=== PATIENT | male | born 1980 | race Caucasian/White ===

== ENCOUNTER 2024-12-21 11:48 | Emergency (ER) | payer MEDICAID, SELFPAY ==
--- NOTE | ~2024-12-21 | CT_ITS ---
CLINICAL HISTORY: rt lower quadarnt pain CT abdomen and pelvis with contrast Comparison: None available Findings: No consolidation at the lung bases. Unremarkable gallbladder and bladder. Hepatic steatosis. No hydronephrosis. Punctate right nephrolithiasis versus early excretion of contrast ( series 5, image 53 ). Subcentimeter low attenuating lesion in the right kidney which is too small to characterize. Cystic dilation of the seminal vesicles. The other solid organs are unremarkable. Small hiatal hernia. No bowel wall thickening or dilation. 1.8 cm increased attenuation material within the distal small bowel, likely ingested (series 5, image 26).A normal appendix is visualized measuring 7 mm, containing intraluminal air and without periappendiceal stranding. No aneurysm. Trace calcified atherosclerotic disease. No lymphadenopathy. No ascites. No acute osseous abnormality. Impression: No acute pathology. This document has been electronically signed by: Kathy Del Valle MD on 12/21/2024 18:00:29
[2024-12-21 11:57] VITALS: BP 142/95; PULSE 74; RESP 18; TEMP 36.5; O2SAT 98; BMI 34.3
--- NOTE | 2024-12-21 11:57 | ED_ITS ---
HPI - Abdominal Pain General Chief Complaint: Abdominal Pain Stated Complaint: abd pain Time Seen by Provider: 12/21/24 13:20 Related Data Allergies Allergy/AdvReac Type Severity Reaction Status Date / Time No Known Allergies Allergy Verified 12/21/24 12:00 [facility] Social History Social History Smoked in Last 30 Days: No Use of substances other than those prescribed or required for medical reasons: No Advance Directives: No Advance Directives Information Provided: Yes Physical Exam ED Vital Signs: Vital Signs - 24 hr 12/21/24 11:57 Temperature 97.7 F Pulse Rate 74 Respiratory Rate 18 Blood Pressure 142/95 H Pulse Oximetry 98 Oxygen Delivery Method Room Air BMI result Body Mass Index 34.3 Course Course Course Narrative: This is an RME performed by Reyna Juan CNP: Additional HPI, ROS, PE not included below will be deferred to primary provider. Patient is a 43 year male who presents emergency department for evaluation of abdominal pain onset 2 weeks ago initially in the right lower abdomen now diffusely throughout the lower abdomen. Today progressively worse and increased while walking. Denies nausea, vomiting, diarrhea, symptoms. Plan: serum labs, U/A Reevaluation(s) Reevaluation #1: see additional note dated 12/21/[address] Ontiveros Medical Decision Making Lab Data 12/21/24 12:29 12/21/24 12:29 Labs: Lab Results 12/21/24 12/21/24 Range/Units 12:29 13:47 WBC 5.1 (4.8-10.8) X10*3/uL RBC 4.69 (4.60-5.80) X10*6/uL Hgb 14.4 (14.0-18.0) g/dl Hct 40.8 L (42.0-52.0) % MCV 87.0 (80.0-98.0) fL MCH 30.7 (27.0-33.0) pg MCHC 35.3 (31.0-36.0) g/dl RDW 12.2 (11.0-16.0) % Plt Count 198 (160-400) X10*3/uL MPV 10.1 (9.4-12.4) fL Immature Gran % (Auto) 0.4 (0.0-0.4) % Neut % (Auto) 52.8 (45-73) % Lymph % (Auto) 37.0 (20-40) % [place] % (Auto) 7.6 (2-11) % Eos % (Auto) 1.8 (0-4) % Baso % (Auto) 0.4 (0-2) % Lymph # (Auto) 1.9 (1.2-4.9) X10*3/uL [place] # (Auto) 0.4 (0.1-1.2) X10*3/uL Eos # (Auto) 0.1 (0.0-0.4) X10*3/uL Baso # (Auto) 0.0 (0.0-0.2) X10*3/uL Abs Immat Gran (auto) 0.02 (0.00-0.03) X10*3/uL Absolute Neuts (auto) 2.7 (2.0-8.3) x10*3/uL Absolute Nucleated RBC 0.000 (0.0-0.012) X10*3/uL Nucleated RBC % (auto) 0.0 (0.0-0.2) /100WBC Sodium 142 (135-145) mmol/L Potassium 4.1 (3.3-5.1) mmol/L Chloride 108 (96-108) mmol/L Carbon Dioxide 27 (22-29) mmol/L Anion Gap 11 L (12-20) BUN 17 H (9-16) mg/dL Creatinine 0.94 (0.5-1.4) mg/dL Estim Creat Clear Calc 105.0 Estimated GFR > 60 Random Glucose 110 (60-115) mg/dL Calcium 9.2 (8.4-10.2) mg/dL Magnesium 2.0 (1.6-2.6) mg/dL Total Bilirubin 0.3 (0.0-1.0) mg/dL Direct Bilirubin 0.1 (0.0-0.5) mg/dL AST 39 H (5-37) U/L ALT 80 H (0-40) U/L Alkaline Phosphatase 55 (39-117) U/L C-Reactive Protein 0.31 (< or = 0.50) mg/dL Total Protein 7.1 (6.5-8.0) g/dL Albumin 4.7 (3.5-5.0) g/dL Lipase 21 (8-78) U/L Urine Color Yellow Urine Appearance Clear Urine pH 6.5 (5.0-9.0) Ur Specific [place] 1.020 (1.005-1.025) Urine Protein Negative (Neg-Trace) mg/dL Urine Glucose (UA) Negative (Negative) mg/dL Urine Ketones Negative (Negative) mg/dL Urine Blood Negative (Negative) Urine Nitrite Negative (Negative) Ur Leukocyte Esterase Negative (Negative) Discharge Plan Discharge Print Language: Urdu
[2024-12-21 12:44] LABS: MANUAL DIFF FLAG NO
[2024-12-21 12:46] LABS: Hematocrit 40.8 % (42.0-52.0); Hemoglobin 14.4 g/dl (14.0-18.0); Imm Gran Abs Auto 0.02 X10*3/uL (0.00-0.03); Imm Gran Pct Auto 0.4 % (0.0-0.4); Lymphocytes Absolute Auto 1.9 X10*3/uL (1.2-4.9); Mean Corpuscular HGB Conc 35.3 g/dl (31.0-36.0); Mean Corpuscular Hemoglobin 30.7 pg (27.0-33.0); Mean Corpuscular Volume 87.0 fL (80.0-98.0); NRBC Abs Auto 0.000 X10*3/uL (0.0-0.012); NRBC Pct Auto 0.0 /100WBC (0.0-0.2); Platelet Count 198 X10*3/uL (160-400); Red Blood Count 4.69 X10*6/uL (4.60-5.80); White Blood Count 5.1 X10*3/uL (4.8-10.8)
[2024-12-21 13:01] LABS: Alanine Aminotransferase 80 U/L (0-40); Albumin Level 4.7 g/dL (3.5-5.0); Alkaline Phosphatase 55 U/L (39-117); Anion Gap 11 (12-20); Aspartate Amino Transferase 39 U/L (5-37); Blood Urea Nitrogen 17 mg/dL (9-16); Calcium 9.2 mg/dL (8.4-10.2); Carbon Dioxide 27 mmol/L (22-29); Chloride 108 mmol/L (96-108); Creatinine Clr Calc Pharmacy 105.0; Estimated Glomerular Filt Rate > 60; Lipase 21 U/L (8-78); Magnesium 2.0 mg/dL (1.6-2.6); Potassium 4.1 mmol/L (3.3-5.1); Sodium 142 mmol/L (135-145); Total Protein 7.1 g/dL (6.5-8.0)
--- NOTE | 2024-12-21 13:31 | ED_ITS ---
HPI - Abdominal Pain General Chief Complaint: Abdominal Pain Stated Complaint: abd pain Time Seen by Provider: 12/21/24 13:20 Source: patient Mode of arrival: ambulatory Limitations: no limitations History of Present Illness HPI narrative: THIS IS A 43 YEARS OLD MALE PRESENTED TO THE EMERGENCY DEPARTMENT WITH A CHIEF COMPLAINT OF RIGHT LOWER QUADRANT ABDOMINAL PAIN FOR ABOUT 2 WEEKS HE DENIES ANY SYSTEMIC SYMPTOMS SUCH FEVER NAUSEA VOMITING DIARRHEA MD elicited complaint: abdominal pain Onset (ago): week(s) (2) Pain Consistency: constant Location: none and RLQ Severity: moderate Quality: cramping Radiation: RLQ Migration to: no migration Exacerbating factors: nothing Relieving factors: nothing Related Data Previous Rx's ?Medication ?Instructions ?Recorded dicyclomine 20 mg tablet 20 mg PO TID PRN abdominal pain 12/21/24 #20 tabs Allergies Allergy/AdvReac Type Severity Reaction Status Date / Time No Known Allergies Allergy Verified 12/21/24 12:00 Review of Systems Eyes: Reports no additional eye complaints Reports system reviewed and no additional complaints, except as documented Cardiovascular: Reports no additional cardiovascular complaints PMFSH Past Medical History Attestation statement: The following information was validated with the patient. Physical Exam ED Exam Exam: ON EXAMINATION HE LOOKS WELL NOT TOXIC APPEARING COMFORTABLE IN THE STRETCHER Vital Signs: Vital Signs - 24 hr 12/21/24 19:24 12/21/24 19:50 12/21/24 19:56 Temperature 98.3 F 98.3 F Pulse Rate 59 61 61 Respiratory Rate 16 16 Blood Pressure 117/81 120/79 120/79 Pulse Oximetry 98 96 96 Oxygen Delivery Method Room Air Room Air Room Air BMI result Body Mass Index 34.3 Const General: cooperative, comfortable and no acute distress Nutritional Appearance: average body habitus Orientation/consciousness: patient oriented x3 HENMT Head: Yes normal to inspection General nose exam: Normal external nose present Face and sinus: Yes normal facial exam Throat: Yes posterior oropharynx normal Neck Neck: Yes normal visual inspection Chest Chest palpation & inspection: normal inspection of the chest Resp Effort & Inspection: normal respiratory effort Auscultation: clear to auscultation bilaterally Cardio Jugular venous distension: no JVD Rate: regular rate Rhythm: regular rhythm GI Other: TENDERNESS IN THE RIGHT LOWER QUADRANT Auscultation: normal bowel sounds Skin General skin exam: no rashes or lesions noted and elasticity normal Neuro General: patient oriented x3 Cranial nerves: Yes CN's II-XII intact bilaterally Course Reevaluation(s) Reevaluation #1: waiting for ct Time: 16:56 Medical Decision Making Medical Decision Making [facility] [place] Narrative: PATIENT IS HERE WITH RIGHT LOWER QUADRANT ABDOMINAL PAIN WE WILL OBTAIN LABS IMAGING [address] scan negative for acute pathology appendix is normal labs were stable discharge patient home Differential Diagnosis Differential Diagnoses: The differential diagnosis associated with the presentation includes APPENDICITIS/COLITIS/DIVERTICULITIS/KIDNEY STONE Admission/Observation Consideration of admission/observation: Escalation of care including admission/observation considered Lab Data [facility] [place] Lab Attestation statement: I reviewed the patient's lab results. 12/21/24 12:29 12/21/24 12:29 Labs: Lab Results 12/21/24 12/21/24 Range/Units 12:29 13:47 WBC 5.1 (4.8-10.8) X10*3/uL RBC 4.69 (4.60-5.80) X10*6/uL Hgb 14.4 (14.0-18.0) g/dl Hct 40.8 L (42.0-52.0) % MCV 87.0 (80.0-98.0) fL MCH 30.7 (27.0-33.0) pg MCHC 35.3 (31.0-36.0) g/dl RDW 12.2 (11.0-16.0) % Plt Count 198 (160-400) X10*3/uL MPV 10.1 (9.4-12.4) fL Immature Gran % (Auto) 0.4 (0.0-0.4) % Neut % (Auto) 52.8 (45-73) % Lymph % (Auto) 37.0 (20-40) % [place] % (Auto) 7.6 (2-11) % Eos % (Auto) 1.8 (0-4) % Baso % (Auto) 0.4 (0-2) % Lymph # (Auto) 1.9 (1.2-4.9) X10*3/uL [place] # (Auto) 0.4 (0.1-1.2) X10*3/uL Eos # (Auto) 0.1 (0.0-0.4) X10*3/uL Baso # (Auto) 0.0 (0.0-0.2) X10*3/uL Abs Immat Gran (auto) 0.02 (0.00-0.03) X10*3/uL Absolute Neuts (auto) 2.7 (2.0-8.3) x10*3/uL Absolute Nucleated RBC 0.000 (0.0-0.012) X10*3/uL Nucleated RBC % (auto) 0.0 (0.0-0.2) /100WBC Sodium 142 (135-145) mmol/L Potassium 4.1 (3.3-5.1) mmol/L Chloride 108 (96-108) mmol/L Carbon Dioxide 27 (22-29) mmol/L Anion Gap 11 L (12-20) BUN 17 H (9-16) mg/dL Creatinine 0.94 (0.5-1.4) mg/dL Estim Creat Clear Calc 105.0 Estimated GFR > 60 Random Glucose 110 (60-115) mg/dL Calcium 9.2 (8.4-10.2) mg/dL Magnesium 2.0 (1.6-2.6) mg/dL Total Bilirubin 0.3 (0.0-1.0) mg/dL Direct Bilirubin 0.1 (0.0-0.5) mg/dL AST 39 H (5-37) U/L ALT 80 H (0-40) U/L Alkaline Phosphatase 55 (39-117) U/L C-Reactive Protein 0.31 (< or = 0.50) mg/dL Total Protein 7.1 (6.5-8.0) g/dL Albumin 4.7 (3.5-5.0) g/dL Lipase 21 (8-78) U/L Urine Color Yellow Urine Appearance Clear Urine pH 6.5 (5.0-9.0) Ur Specific [place] 1.020 (1.005-1.025) Urine Protein Negative (Neg-Trace) mg/dL Urine Glucose (UA) Negative (Negative) mg/dL Urine Ketones Negative (Negative) mg/dL Urine Blood Negative (Negative) Urine Nitrite Negative (Negative) Ur Leukocyte Esterase Negative (Negative) Independent Interpretation I performed an independent interpretation of an: CT Scan Radiology Impression Discussion of test interpretation with radiology: I have reviewed the radiologist's reading. Radiologist Impression: No acute finding Medications Administered Discontinued Medications Generic Name Dose Route Start Last Admin Trade Name Freq PRN Reason Stop Dose Admin Dicyclomine HCl 20 mg 12/21/24 19:39 12/21/24 19:51 Dicyclomine Hcl 10 Mg Capsule PO 12/21/24 19:40 20 mg ONCE ONE Administration Iohexol 85 ml 12/21/24 17:22 12/21/24 17:22 Iohexol 350 Mg/Ml 100 Ml Infus..Btl IV 12/21/24 17:23 85 ml ONCE ONE Administration Discharge Plan Discharge Clinical Impression: Abdominal pain Patient Disposition: Home, Self-Care Instructions: Abdominal Pain (ED) Additional Instructions: Cause of your abdominal pain is not clear your CT scan is negative for acute pathology no kidney stone seen appendix is normal it is possible you might have a tiny stone which already passed Drink plenty of fluids Dicyclomine for pain as needed Prescriptions: New dicyclomine 20 mg tablet 20 mg PO TID PRN (Reason: abdominal pain) Qty: 20 0RF Interventions: ED Discharge Assessment Last Done: 12/21/24 19:56 Discharge Date/Time: 12/21/24 20:02 Print Language: Maori
[2024-12-21 13:55] LABS: Appearance Urine Clear; Glucose Urine UA Negative (Negative); PH 6.5 (5.0-9.0); Specific Gravity - Urine 1.020 (1.005-1.025)
[2024-12-21 16:38] VITALS: BP 135/84; PULSE 60; RESP 14; TEMP 36.3; O2SAT 99
[2024-12-21] MEDS: iohexoL 350 MG/ML 100 ML INFUS..BTL 85 ML IV (17:22)
[2024-12-21 19:24] VITALS: BP 117/81; PULSE 59; TEMP 36.8; O2SAT 98
[2024-12-21 19:50] VITALS: BP 120/79; PULSE 61; RESP 16; O2SAT 96
[2024-12-21 19:56] VITALS: BP 120/79; PULSE 61; RESP 16; TEMP 36.8; O2SAT 96
== END 2024-12-21 20:02 | disposition home or self-care (01) ==
PROVIDERS: Nurse Practitioner Family; Emergency Provider Internal Medicine
DX: R10.31 Right lower quadrant pain (principal)
CPT/HCPCS: 36415; 74177; 80048; 80076; 81003; 83690; 83735; 85025; 86140; 99284; Q9967

== ENCOUNTER → 2024-12-21 15:20 | Outpatient (BNV) | payer MEDICAID, SELFPAY | PROVIDERS: Emergency Provider Internal Medicine; Visit Provider Radiology Diagnostic Radiology | DX: R10.31 Right lower quadrant pain (principal) | CPT/HCPCS: 74177 ==